=== PATIENT | male | born 1945 | race Native Hawaiian/Other Pacific Islander ===

== ENCOUNTER 2018-04-24 09:10 | Emergency (ER) | payer OTHER ==
[~2018-04-24] VITALS: Ht 172.7 cm; Wt 64.9 kg
[2018-04-24 09:30] VITALS: TEMP 98.7
[2018-04-24 10:27] LABS: PLATELET COUNT 215 K/uL (142-355)
[2018-04-24 11:06] VITALS: BP 130/72
== END 2018-04-24 11:06 | disposition home or self-care (01) ==
LOC: ED 09:10
DX: M50.80 Other cervical disc disorders, unspecified cervical region (principal)
CPT/HCPCS: 36415; 80053; 81000; 85027; 99283